=== PATIENT | female | born 1985 | race Caucasian/White ===

== ENCOUNTER 2020-05-28 06:04 | Emergency (ER) | payer OTHER ==
[~2020-05-28] VITALS: Ht 180.3 cm; Wt 65.8 kg
--- NOTE | ~2020-05-28 | H ---
[address] [address] HISTORY AND PHYSICAL Name: PERI MANZO Room: [facility] YAJAIRA Martino#: [id number] Admission: 05/28/20 Attend Phys: Discharge: 05/28/20 Date of : 85 Report #: [id number] THIS REPORT FOR: //name// cc: FAM - No family physician/PCP FAM - No family physician/PCP ~ THIS REPORT FOR: //name// Patient was here less than 24 hour please refer to the final summation note. Patient left AMA. By: 0649Medical Records Staff DELPHINE /MATT
[~2020-05-28 06:04] MED LIST: MECLIZINE HCL25 MG PO; ZOFRAN ODT4 MG PO
[2020-05-28 06:25] VITALS: BP 149/78
[2020-05-28 06:34] LABS: ABSOLUTE EOSINOPHILS 0.1 thou/uL (0.0-0.7); ABSOLUTE MONOCYTES 0.5 thou/uL (0.0-1.2); ABSOLUTE NEUTROPHILS 2.3 thou/uL (1.6-8.1); BASOPHILS 0.7 %; EOSINOPHILS 2.5 %; HEMOGLOBIN 13.8 gm/dL (12.0-15.0); LYMPHOCYTES 39.6 %; MCHC 34.6 g/dL (28.0-37.0); MCV 92.4 fL (80.0-100.0); MONOCYTES 10.8 %; MPV 8.1 fl. (7.2-11.1); NUCLEATED RBCS 0 /100WBC; PLATELET COUNT* 256 thou/uL (150-400); POLYS 46.4 %; RBC 4.33 mil/uL (4.20-5.00); RDW-CV 12.4 % (10.5-14.5)
[2020-05-28 06:50] LABS: APTT 25.5 Seconds (25.0-31.3); PROTIME 10.4 Seconds (9.20-11.50)
[2020-05-28 06:53] LABS: CALCIUM 8.3 mg/dL (8.5-10.1); CREATININE 0.9 mg/dL (0.6-1.3)
[2020-05-28 06:58] LABS: ALBUMIN 3.6 g/dL (3.4-5.0); TOTAL BILIRUBIN 0.2 mg/dL (<0.1-1.0); TOTAL PROTEIN 7.1 g/dL (6.4-8.2)
[2020-05-28 07:00] LABS: URINE BILIRUBIN NEGATIVE (Negative); URINE BLOOD NEGATIVE (Negative); URINE CLARITY CLEAR; URINE COLOR YELLOW; URINE GLUCOSE-RANDOM NEGATIVE (Negative); URINE KETONES NEGATIVE (Negative); URINE LEUKOCYTES-REFLEX NEGATIVE (Negative); URINE NITRITE-REFLEX NEGATIVE (Negative); URINE PROTEIN NEGATIVE (Negative); URINE SPECIFIC GRAVITY 1.025 (1.005-1.030); URINE UROBILINOGEN 0.2 E.U./dl (0.2-1.0)
--- NOTE | 2020-05-28 07:52 | NUR ---
PT REQUESTING TO SIGN OUT AMA. RISKS AND BENEFITS EXPLAINED EXTENSIVELY. PT ADAMANT THAT SHE IS "BETTER" AND SHE CAN JUST "FIGURE OUT IF SHE HAD A STROKE OUTPATIENT". PT ALERT AND ORIENTED AND ABLE TO MAKE OWN DECISIONS. NO S/SX OF DISTRESS NOTED.
[2020-05-28 07:58] VITALS: BP 116/70
--- NOTE | 2020-05-28 11:41 | EKG ---
[place] [address] ELECTROCARDIOGRAM REPORT Name: PERI MANZO Room: [address]#: [id number] Admission: 05/28/20 Attend Phys: Yves padilla Sa Discharge: 05/28/20 Date of : 85 Date of Service: 05/28/20 0630 Report #: [id number] THIS REPORT FOR: //name// [facility] ED Test Date: 2020-05-28 Test Time: 06:30:16 Pat Name: PERI MANZO Department: Room: [facility] Gender: F Head Lineman: JAZZ : 1985 Requested By: [place] Order Number: [id number] MD: Donald Agosto Measurements Intervals [place] Rate: 69 P: 46 TX: 148 QRS: 73 QRSD: 90 T: 20 QT: 360 QTc: 386 Interpretive Statements Sinus rhythm Baseline wander in lead(s) V1,V2 Compared to ECG 04/17/2014 18:36:36 No significant changes Electronically Signed On 05-28-2020 11:40:53 CDT by Donald Agosto [email or web address] <ELECTRONICALLY SIGNED> By: Donald Agosto MD, [facility] 05/28/20 1140 Donald Agosto MD, [facility] /EPI
== END 2020-05-28 07:50 | disposition left against medical advice (07) ==
LOC: M.ERS 06:04 → M.TBA-ER 07:28 → M.ERS 07:28 → M.TBA-ER 07:45
PROVIDERS: Personal Emergency Response Attendant
DX: R29.810 Facial weakness (principal)